=== PATIENT | female | born 1990 | race Asian ===

== ENCOUNTER 2016-08-09 02:31 | Emergency (ER) | payer MEDICAID, OTHER ==
[2016-08-09] MEDS ORDERED: Sodium Chloride 0.9% 1,000 ML IV SCH (03:00)
[2016-08-09] MEDS ORDERED: diphenhydrAMINE 50 MG/ML SDV IVPUSH ONE (03:01)
[2016-08-09] MEDS ORDERED: Metoclopramide 10 MG/2 ML SDV IV STA (03:01)
[2016-08-09] MEDS ORDERED: SUMAtriptan 6 MG/0.5 ML SDV SUBCUT ONE (03:14)
[2016-08-09 04:42] VITALS: BP 107/63
--- NOTE | 2016-08-09 04:44 | EDM.PDOC ---
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 She has had one like this before was treated with IV fluids and medications. This was several years ago. She presents with 10 out of 10 pain pounding with nausea and severe photophobia and phonophobia. Mr. panchal this contributes to lites especially involving her eyes and can be a trigger for her. She's had no fevers chills cough cold symptoms. No shortness of breath or chest pain] Review of systems: As per history of present illness and below otherwise all systems reviewed and negative. Past medical history: As per history of present illness and as reviewed below otherwise noncontributory. Surgical history: As per history of present illness and as reviewed below otherwise noncontributory. Social history: No reported history of drug or alcohol abuse. Family history: As per history of present illness and as reviewed below otherwise noncontributory. Physical exam: Gen.: She appears to be in severe pain and prefers a dark room and she feels her eyes from any light HEENT: Atraumatic, normocephalic, pupils reactive, negative for conjunctival pallor or scleral icterus, mucous membranes moist, throat clear, neck supple, nontender, trachea midline. Lungs: Clear to auscultation, breath sounds equal bilaterally, chest nontender. Heart: S1S2, regular, negative for clicks, rubs, or JVD. Abdomen: Soft, nondistended, nontender. Negative for masses or hepatosplenomegaly. Negative for costovertebral tenderness. Pelvis: Stable nontender. Genitourinary: Deferred. Rectal: Deferred. Extremities: Atraumatic, negative for cords or calf pain. Neurovascular unremarkable. Neuro: Awake, alert, oriented. Cranial nerves II through XII unremarkable. Cerebellum unremarkable. Motor and sensory unremarkable throughout. Exam nonfocal. Diagnostics: [Head CT was negative] Therapeutics: [She received IV fluids and IV Benadryl IV Reglan and subcutaneous Imitrex with quite good relief] Impression: [Migraine headache] Plan: [Followup as needed. I suggested that she see a neurologist it doesn't sound like she's ever seen one.] Definitive disposition and diagnosis as appropriate pending reevaluation and review of above. - Related Data Allergies/ADRs: Allergies Allergy/AdvReac Type Severity Reaction Status Date / Time ibuprofen Allergy Airway Uncoded 08/09/16 02:42 Tightness Home Meds: Home Meds Norethindrone-E.estradiol-Iron [Microgestin Fe 1.5-30 Tab] 1 tab PO DAILY [History] Past Medical History HEENT History: Reports: Impaired vision Neurological History: Reports: Migraines - Past Surgical History HEENT Surgical History: Reports: Tonsillectomy Social & Family History - Tobacco Use Smoking Status *Q: Never Smoker - Caffeine Use Caffeine Use: Reports: Coffee, Soda, Tea - Recreational Drug Use Recreational Drug Use: No ED ROS GENERAL - Review of Systems Review Of Systems: ROS reveals no pertinent complaints other than HPI. - Physical Exam Exam: See Below Course - Vital Signs Last Recorded V/S: Last Vital Signs Temp 36.5 C 08/09/16 02:37 Pulse 103 H 08/09/16 02:37 Resp 24 H 08/09/16 02:37 BP 135/99 H 08/09/16 02:37 Pulse Ox 100 08/09/16 02:37 - Orders/Labs/Meds Orders: Active Orders 24 hr Category Date Time Status Head wo Cont [CT] Stat Exams 08/09/16 03:18 Taken Sodium Chloride 0.9% [Normal Saline] 1,000 ml Med 08/09/16 03:00 Active IV ASDIRECTED Medication Orders Sodium Chloride (Normal Saline) 1,000 mls @ 999 mls/hr IV ASDIRECTED DEE Last Admin: 08/09/16 03:06 Dose: 999 mls/hr Meds: Medications Generic Name Dose Route Start Last Admin Trade Name Freq PRN Reason Stop Dose Admin Sodium Chloride 1,000 mls @ 999 mls/hr 08/09/16 03:00 08/09/16 03:06 Normal Saline IV 999 mls/hr ASDIRECTED DEE Administration Discontinued Medications Generic Name Dose Route Start Last Admin Trade Name Freq PRN Reason Stop Dose Admin Diphenhydramine HCl 25 mg 08/09/16 03:01 08/09/16 03:07 Benadryl IVPUSH 08/09/16 03:02 25 mg ONETIME ONE Administration Metoclopramide HCl 10 mg 08/09/16 03:01 08/09/16 03:08 Reglan IV 08/09/16 03:02 10 mg NOW STA Administration Sumatriptan Succinate 6 mg 08/09/16 03:14 08/09/16 03:19 Imitrex SUBCUT 08/09/16 03:15 6 mg ONETIME ONE Administration Departure - Departure Time of Disposition: 04:43 Disposition: Home, Self-Care 01 Condition: good Clinical Impression: Migraine headache with aura Qualifiers: Status migrainosus presence: without status migrainosus Intractability: not intractable Qualified Code(s): G43.109 - Migraine with aura, not intractable, without status migrainosus Forms: ED Department Discharge Additional Instructions: I would recommend you see a neurologist at some point to see if they have any recommendations as far as prophylactic treatment for migraines - My Orders Last 24 Hours: My Active Orders 08/09/16 03:00 Sodium Chloride 0.9% [Normal Saline] 1,000 ml IV ASDIRECTED 08/09/16 03:18 Head wo Cont [CT] Stat - Assessment/Plan Last 24 Hours: My Active Orders 08/09/16 03:00 Sodium Chloride 0.9% [Normal Saline] 1,000 ml IV ASDIRECTED 08/09/16 03:18 Head wo Cont [CT] Stat
== END 2016-08-09 04:55 | disposition home or self-care (01) ==
LOC: EDBD 02:31 → JP.ED 02:31
DX: G43.109 Migraine with aura, not intractable, without status migrainosus (principal); Z88.8 Allergy status to other drugs, medicaments and biological substances; Z79.899 Other long term (current) drug therapy; Z98.890 Other specified postprocedural states
CPT/HCPCS: 70450; 96361; 96372; 96374; 96375; 99284; J1200; J2765; J3030; J7040